=== PATIENT | male | born 1965 | race Caucasian/White ===

== ENCOUNTER 2020-02-22 05:59 | Emergency (ER) | payer MEDICARE ==
[~2020-02-22] VITALS: Ht 185.4 cm; Wt 95.9 kg
[2020-02-22 06:04] VITALS: BP 128/58
--- NOTE | 2020-02-22 07:02 | NUR ---
PT NIL X 3. PER ER REG AND SECURITY AFTER PT WAS TRIAGED HE WALKED BACK INTO LOBBY AND GOT IN A VERBAL ARGUMENT WITH ANOTHER PT AND BOTH PTS LEFT THE LOBBY. PT STATED HE WAS GOING TO GO TO [facility]
== END 2020-02-22 07:07 | disposition left against medical advice (07) ==
LOC: ER 06:04
DX: M54.2 Cervicalgia (principal); Z53.21 Procedure and treatment not carried out due to patient leaving prior to being seen by health care provider

== ENCOUNTER 2020-02-24 07:31 | Emergency (ER) | payer MEDICARE ==
[~2020-02-24] VITALS: Ht 188 cm; Wt 98.2 kg
[2020-02-24 07:34] VITALS: BP 107/74
[2020-02-24] MEDS ORDERED: PRED20TA PO (08:01)
[2020-02-24] MEDS ORDERED: MELO-100 PO (08:01)
[2020-02-24] MEDS ORDERED: ibuprofen tablet 400 MG TABLET PO ONE (08:05)
[2020-02-24] MEDS ORDERED: acetaminophen 325mg tablet PO ONE (08:05)
== END 2020-02-24 08:10 | disposition home or self-care (01) ==
LOC: ER 07:32
DX: G89.29 Other chronic pain (principal); M25.511 Pain in right shoulder; R45.1 Restlessness and agitation; M25.531 Pain in right wrist; M25.532 Pain in left wrist
CPT/HCPCS: 99283